=== PATIENT | female | born 1995 | race Caucasian/White ===

== ENCOUNTER 2016-07-05 22:03 | Emergency (ER) | payer MEDICAID ==
[~2016-07-05] VITALS: Ht 152.4 cm; Wt 47.0 kg
[2016-07-05 23:34] VITALS: Ht 152.4 cm; Wt 47.0 kg
--- NOTE | 2016-07-06 03:14 | ERD ---
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 Patient broke out in rash after eating candy. Patient denies any stridor. Patient started to feel lightheaded and dizzy 30 minutes prior to arrival, patient is complaining of headache, throbbing pain, for/10 scale, accompanied with dizziness and lightheadedness. Patient denies any nausea or vomiting. 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 ROS All systems reviewed and are negative except as per history of present illness. Medications Home Meds No Active Prescriptions or Reported Meds Allergies Allergies: Coded Allergies: No Known Allergy (Unverified , 08/04/15) PMhx/Soc History of Surgery: No Anesthesia Reaction: No Hx Neurological Disorder: No Hx Respiratory Disorders: No Hx Cardiac Disorders: No Hx Psychiatric Problems: Yes (pt states depressed easily) Hx Miscellaneous Medical Probl: No Hx Alcohol Use: Yes (has drank in past) Hx Substance Use: Yes (oxycotin last used 3 weeks ago) Hx Tobacco Use: Yes (last smoked 3 weeks ago) Physical Exam Vitals Vital Signs Date Time Temp Pulse Resp B/P Pulse Ox O2 Delivery O2 Flow Rate FiO2 07/05/16 23:34 97.2 96 20 136/62 97 Physical Exam Const: [] Head: Atraumatic Eyes: Normal Conjunctiva ENT: Normal External Ears, Nose and Mouth. Neck: Full range of motion..~ No meningismus. Resp: Clear to auscultation bilaterally Cardio: Regular rate and rhythm, no murmurs Abd: Soft, non tender, non distended. Normal bowel sounds Skin: No petechiae or rashes Back: No midline or flank tenderness Ext: No cyanosis, or edema Neur: Awake and alert Psych: Normal Mood and Affect Result Diagram: 07/06/16 0320 07/06/16 0320 Results 24 hrs Laboratory Tests Test 07/06/16 03:20 Alanine Aminotransferase (ALT/SGPT) 20IU/L Albumin 4.1g/dl Albumin/Globulin Ratio 1.02 Alkaline Phosphatase 113IU/L Anion Gap 18 Aspartate Amino Transf (AST/SGOT) 22IU/L Basophils # 0.210^3/ul Basophils % 1.4% Blood Morphology Comment Blood Urea Nitrogen 8mg/dl Calcium Level 9.5mg/dl Carbon Dioxide Level 30mmol/L Chloride Level 98mmol/L Creatinine 0.56mg/dl Direct Bilirubin 0.00mg/dl Eosinophils # 0.210^3/ul Eosinophils % 2.2% Globulin 4.00g/dl Glucose Level 82mg/dl Hematocrit 36.4% Hemoglobin 12.1g/dl Indirect Bilirubin 0.0mg/dl Lymphocytes # 3.210^3/ul Lymphocytes % 29.8% Mean Corpuscular Hemoglobin 27.9pg Mean Corpuscular Hemoglobin Concent 33.3g/dl Mean Corpuscular Volume 83.8fl Mean Platelet Volume 7.2fl Monocytes # 1.210^3/ul Monocytes % 11.3% Neutrophils # 6.010^3/ul Neutrophils % 55.3% Nucleated Red Blood Cells # 0.010^3/ul Nucleated Red Blood Cells % 0.0/100WBC Platelet Count 75565^3/UL Potassium Level 3.3mmol/L Red Blood Count 4.3510^6/ul Red Cell Distribution Width 15.6% Sodium Level 143mmol/L Total Bilirubin 0.0mg/dl Total Protein 8.1g/dl White Blood Count 10.810^3/ul Current Medications Medications (Trade) Dose Ordered Sig/Mc Route PRN Reason Start Time Stop Time Status Last Admin Dose Admin Diphenhydramine HCl (Benadryl) 50 mg ONCE ONCE IM 07/06/16 03:30 07/06/16 03:31 DC 07/06/16 03:33 Benadryl was given here in emergency department to help with itching and the rash. EKG was done, read by me and is normal sinus rhythm at a rate of 82, normal axis , there is no ST changes or changes in the EKG that indicates any cardiac emergencies at this time. Patient's EKG was also reviewed by Dr. Anderson. Impression: no acute findings on EKG PROCEDURE: CT Brain without contrast. CLINICAL INDICATION: Headache and dizziness TECHNIQUE: Axial images from the skull base through the vertex without IV contrast. Multiplanar reformatted images were made. Images were reviewed on a PACS workstation. The CTDIvol is 45.01 mGy and the DLP is 720.23 mGycm. One or more of the following dose reduction techniques were used: automated exposure control, adjustment of the mA and/or kV according to patient size, or use of iterative reconstruction technique. COMPARISON: 10/28/2012 FINDINGS: The ventricles and cisterns are normal for age. There is no evidence for territorial infarction or intracranial hemorrhage. No mass or midline shift is seen. No extra-axial fluid collection is seen. The visualized paranasal sinuses and mastoids are clear. IMPRESSION: No definite acute intracranial abnormality. RPTAT: [facility] Georgina Hassan Physician Date Time Electronically viewed and signed by Georgina Hassan Physician on 07/06/2016 04 :06 LE/ Procedures/MDM Medical Decision Making: Patient's symptoms of lightheadedness and dizziness nonspecific at this time, possibly related to drug abuse, patient's been on heroin and crystal meth. Can be side effects. There is low suspicion for neurological emergencies at this time since patients neurologic exam is normal. Patient did not have any altered level consciousness, vomiting, changes in balance or memory after incident. Patients CT scan of the head does not show any neurological emergencies at this time. Patient's rash all over the body consistent with urticaria, allergic reaction, unknown source at this time. No symptoms of anaphylactic shock. No symptoms of respiratory distress. No angioedema noted. No symptoms of any contagious rash at this time. Patient was given for Benadryl, prednisone, is advised to follow-up with primary care doctor to 3 days for reevaluation of symptoms. Patient was advised to return to emergency department for worsening symptoms Departure Diagnosis: Primary Impression: Dizziness Additional Impression: Urticaria Condition: Stable Patient Instructions: Dizziness, Unk Cause, Hives AZALIA DIXON NP Jul 06, 2016 03:14
[2016-07-06] MEDS ORDERED: DIPHENHYDRAMINE 50 MG INJ IM ONE (03:30)
[2016-07-06 03:48] VITALS: BP 112/68; PULSE 99; RESP 20; TEMP 98.4
[2016-07-06 03:50] LABS: BASOPHIL # 0.2 10^3/ul (0.0-0.1); BASOPHILS % 1.4 % (0.0-2.0); EOSINOPHILS # 0.2 10^3/ul (0.0-0.5); EOSINOPHILS % 2.2 % (0.0-7.0); HEMATOCRIT 36.4 % (37.0-47.0); HEMOGLOBIN 12.1 g/dl (12.0-16.0); LYMPHOCYTES # 3.2 10^3/ul (0.8-2.9); LYMPHOCYTES % 29.8 % (15.0-51.0); MEAN CORPUSCULAR HEMOGLOBIN 27.9 pg (29.0-33.0); MEAN CORPUSCULAR HGB CONC 33.3 g/dl (32.0-37.0); MEAN CORPUSCULAR VOLUME 83.8 fl (82.0-101.0); MEAN PLATELET VOLUME 7.2 fl (7.4-10.4); MONOCYTE # 1.2 10^3/ul (0.3-0.9); MONOCYTES % 11.3 % (0.0-11.0); NEUTROPHILS % 55.3 % (39.0-77.0); PLATELET COUNT 474 10^3/UL (140-440); RED BLOOD COUNT 4.35 10^6/ul (4.20-5.40); RED CELL DISTRIBUTION WIDTH 15.6 % (11.5-14.5); UNCORRECTED WBC 10.8 10^3/ul (4.8-10.8); WHITE BLOOD COUNT 10.8 10^3/ul (4.8-10.8)
[2016-07-06 04:01] LABS: CONDITION 1; LH ANALYZER COMMENTS 1
--- NOTE | 2016-07-06 04:07 | RADRPT ---
PROCEDURE: CT Brain without contrast. CLINICAL INDICATION: Headache and dizziness TECHNIQUE: Axial images from the skull base through the vertex without IV contrast. Multiplanar r eformatted images were made. Images were reviewed on a PACS workstation. The CTDIvol is 45.01 mGy and the DLP is 720.23 mGycm. One or more of the following dose reduction techniques were used: auto mated exposure control, adjustment of the mA and/or kV according to patient size, or use of iterativ e reconstruction technique. COMPARISON: 10/28/2012 FINDINGS: The ventricles and cisterns are normal for age. There is no evidence for territorial infarction or intracranial hemorrhage. No mass or midline shift is seen. No extra-axial fluid collection is seen . The visualized paranasal sinuses and mastoids are clear. IMPRESSION: No definite acute intracranial abnormality. RPTAT: [facility] Physician Alireza Date Time Electronically viewed and signed by Physician Alireza on 07/06/2016 04:06 EVE/
[2016-07-06 04:14] LABS: ALBUMIN 4.1 g/dl (3.3-4.9)
[2016-07-06 04:15] LABS: POTASSIUM 3.3 mmol/L (3.5-5.1)
[2016-07-06 04:17] LABS: ALBUMIN/GLOBULIN RATIO 1.02; CREATININE 0.56 mg/dl (0.44-1.00); TOTAL PROTEIN 8.1 g/dl (6.1-8.1)
[2016-07-06 04:18] LABS: CALCIUM 9.5 mg/dl (8.4-10.2)
[2016-07-06] MEDS ORDERED: PRED50TA PO (05:19)
[2016-07-06] MEDS ORDERED: BEN50 PO (05:19)
== END 2016-07-06 05:51 | disposition home or self-care (01) ==
LOC: FTE 22:03
DX: R42 Dizziness and giddiness (principal); L50.9 Urticaria, unspecified; Z87.891 Personal history of nicotine dependence
CPT/HCPCS: 70450; 80053; 85025; 93005; 96372; J1200; Z7502

== ENCOUNTER 2017-11-06 19:44 | Emergency (ER) | END 2017-11-07 00:35 | disposition home or self-care (01) ==

== ENCOUNTER 2017-12-12 10:19 | Inpatient (IN) | END 2017-12-14 15:35 | disposition left against medical advice (07) | DRG 872 ==